=== PATIENT | male | born 1970 | race Caucasian/White ===

== ENCOUNTER 2023-02-13 07:32 | Outpatient (CLI) | payer OTHER, SELFPAY | END 2023-02-13 07:33 | disposition home or self-care (01) | PROVIDERS: PCP Nurse Practitioner Family; Visit Provider Otolaryngology | DX: H93.12 Tinnitus, left ear (principal); J33.8 Other polyp of sinus; J30.2 Other seasonal allergic rhinitis; H90.3 Sensorineural hearing loss, bilateral | CPT/HCPCS: 92557; 92567 ==

== ENCOUNTER 2023-03-18 06:33 | Outpatient (CLI) | payer OTHER, SELFPAY ==
--- NOTE | ~2023-03-18 | CT_ITS ---
EXAMINATION: CT sinus wo con DATE: 03/18/2023 06:51 INDICATION: Other polyp of sinus TECHNIQUE: Computed tomography (CT) of the paranasal sinuses was performed without intravenous contra st. The dose-length product (DLP) was 231.47 mGy-cm. Iterative reconstruction was used. COMPARISON: None FINDINGS: There is normal development and pneumatization of the paranasal sinuses. There is a polyp o r mucous retention cyst in the medial aspect of the right frontal sinus. There is mild mucosal thicke madelaine of the ethmoidal air cells. There are polyps or mucous retention cysts inferiorly in the right m axillary sinus. There is also a polyp or mucous retention cyst on the anterior wall of the right maxi llary sinus. There is mild mucosal thickening inferiorly in the left maxillary sinus. There are 6 mm of leftward deviation of the nasal septum. There is partial opacification of the right middle meatus. The bilateral ostiomeatal complexes are patent. Visualized soft tissues are unremarkable. IMPRESSION: 1. Sinus disease as above. Reviewed, dictated and finalized at location L. IMPRESSION: 1. Sinus disease as above.
== END 2023-03-18 06:34 | disposition home or self-care (01) ==
PROVIDERS: PCP Nurse Practitioner Family; Visit Provider Nurse Practitioner Family
DX: J01.01 Acute recurrent maxillary sinusitis (principal); J30.2 Other seasonal allergic rhinitis; J33.8 Other polyp of sinus
CPT/HCPCS: 70486

== ENCOUNTER 2023-06-20 09:02 | Outpatient (CLI) | payer OTHER, SELFPAY ==
--- NOTE | 2023-06-20 09:15 | ECG_ITS ---
Measurements Intervals [place] Rate: 66 P: 9 IN: 184 QRS: 19 QRSD: 113 T: 5 QT: 406 QTc: 426 Interpretive Statements SINUS RHYTHM MODERATE INTRAVENTRICULAR CONDUCTION DELAY [110+ ms QRS DURATION] ABNORMAL ECG NO PREVIOUS ECG AVAILABLE FOR COMPARISON Electronically Signed On 06-20-2023 14:00:02 CDT by Caleb Chen M.D.
[2023-06-20 09:44] LABS: Anion Gap 6 mmol/L (8-16); Blood Urea Nitrogen 18 mg/dL (9-20); Calcium 9.2 mg/dL (8.4-10.2); Carbon Dioxide 32 mmol/L (22-30); Chloride 100 mmol/L (98-107); Estimated Glomerular Filt Rate > 60; Glucose 101 mg/dL (65-110); Potassium 3.3 mmol/L (3.4-5.0); Sodium 138 mmol/L (137-145)
== END 2023-06-20 09:03 | disposition home or self-care (01) ==
PROVIDERS: Anesthesiology; PCP Nurse Practitioner Family; Visit Provider Otolaryngology
DX: E11.9 Type 2 diabetes mellitus without complications (principal); Z01.818 Encounter for other preprocedural examination
CPT/HCPCS: 36415; 80048; 93005

== ENCOUNTER 2023-07-01 01:06 | Day surgery (SDC) | payer OTHER, SELFPAY ==
[2023-06-19 10:17] VITALS: BMI 34.4
--- NOTE | 2023-06-19 10:24 | PC.NURSE ---
Report to the Outpatient Waiting Room, entrance under the green pavilion located off [facility], at time 9:30 on date 07/01/23. Planned Procedure Time: 11:30. Time changes happen often and if your time is changed the preop area will call you the afternoon before. - You and your visitor will be asked to self-screen and do not enter if you have any COVID symptoms. - A mask is optional within the hospital at this time. Patients may have clear liquids (water, carbonated beverages, clear teas, apple juice) until 3 hours prior to surgery (8:30) with a maximum of 20 ounces. - No food from midnight until time of surgery Take the following medications with a SIP of water the morning of surgery: AMLODIPINE DO NOT STOP ANY OF YOUR OTHER PRESCRIPTION MEDICATIONS PRIOR TO SURGERY ?EXCEPT THE FOLLOWING Medications to discontinue per physician: VITAMINS/SUPPLEMENTS Date to take last dose: 06/27/23 Please no make-up, nail maori, hairspray, perfume, deodorant, or body powder the day of surgery. No jewelry (including any body piercings) or valuables the day of surgery, leave them at home. Please take a shower or bath the night before, or the morning of, surgery with an antibacterial soap. Wear comfortable, loose fitting clothing. - Jewelry must be removed prior to entering the operating room. Rings and piercings that are not removed may be cut off. - The hospital will not accept responsibility for valuables. - Please leave all valuables, including medications, at home the day of surgery. If you are going home after surgery, a licensed hire car driver must drive you home. - NO public transportation without another adult if you receive anesthesia. - We recommend that an adult stay with you for 24 hours following discharge. - We also recommend that you do not drive, make important decision, drink alcoholic beverages, or take any drugs that were not prescribed by your health care provider for at least 24 hours after your discharge time. Follow any additional instructions given to you from your surgeon. If you or anyone in your household have experienced Covid symptoms in the past week, please notify your surgeon or the nurse liaison at the phone number below for possible testing. Telephone instructions given to PT - DIVYA FRAIRE and asked if any additional questions and then verbalized understanding. Patient advised to call surgeon office or pre surgery nurse liaison [phone] if any additional questions.
--- NOTE | 2023-06-30 13:49 | WPDANESEPPF ---
Anes - Initial Pre Proc Eval Procedure: Operation Date: 07/01/23 11:30 Proposed Procedures p Endoscopic Septoplasty, - Niraj Cummings MD s Image Guided Bilateral Inferior Turbinectomy With Outfracture, Right Maxillary Antrostomy Without Tissue Removal, Right Total Ethmoidectomy, Right Frontal Sinusotomy - Niraj Cummings MD Date/Time: 06/30/23 13:49 Surgeon: Niraj Cummings MD Pre Op Diagnosis: chronic sinusitis Patient Data Age: 52 Gender: M Height: 1.7 m Weight: 99.8 kg Allergies Allergy/AdvReac Type Severity Reaction Status Date / Time No Known Allergies Allergy Verified 07/01/23 09:06 Home Medications Medication Instructions Recorded Confirmed Type amlodipine 10 mg tablet 10 mg PO DAILY 01/28/23 06/19/23 History calcium carbonate 430 mg calcium 430 mg PO DAILY 01/28/23 06/19/23 History (1,000 mg) chewable tablet cetirizine 10 mg capsule (Zyrtec) 10 mg PO DAILY 01/28/23 06/19/23 History garlic 1,000 mg capsule (garlic 1,000 mg PO DAILY 01/28/23 06/19/23 History oil) losartan 100 1 tablet PO DAILY 01/28/23 06/19/23 History mg-hydrochlorothiazide 25 mg tablet magnesium hydroxide 400 mg (170 mg 400 mg PO DAILY 01/28/23 06/19/23 History magnesium) chewable tablet [id number] 120 mcg-lutein 1 tablet PO DAILY 01/28/23 06/19/23 History 150 mcg-herb 50 mg chewable tablet (Alive Men's 50 Plus Multivitamin) omega-3 fatty acids 1,000 mg 1,000 mg PO DAILY 01/28/23 06/19/23 History capsule omeprazole 40 mg capsule,delayed 40 mg PO DAILY 01/28/23 06/19/23 History release fluticasone propionate 50 1 - 2 spray intranasal BID #16 mL 04/24/23 06/19/23 Rx mcg/actuation nasal spray,suspension (Flonase Allergy Relief) mupirocin 2 % topical ointment 1 applic topical .COMPLEX #44 grams 05/08/23 06/19/23 Rx Lactobac 51-Bifidobac 1 cap PO DAILY 06/19/23 06/19/23 History 3-L.lactis-S.thermophilus 4 billion cell capsule (Daily Probiotic (10 Strains)) empagliflozin 10 mg tablet 10 mg PO DAILY 06/19/23 06/19/23 History (Jardiance) Patient hx anesthesia problems: none Family hx anesthesia problems: none Results Review: All pre-operative results and documents have been reviewed as part of the pre-operative evaluation. [facility] Past Medical History Medical History (Updated 06/30/23 @ 13:50 by Rafa Vaca DO) Diabetes type 2, controlled GERD (gastroesophageal reflux disease) Hypertension Family History Family History Father Diabetes mellitus Hypertension Heart disease Sibling Hypertension Grandparent Diabetes mellitus Hypertension Social History Social History Smoking status: Never smoker Alcohol intake: current Alcohol use details: 2/MONTH Substance use: never Substance use type: does not use Lack of Transportation: No Lack of Food: Never True Current Housing: I Have Housing Concerned About Future Housing: No Difficulty Paying Gas/Electric Bills: No Difficulty Paying for Meds: No Currently Unemployed: No Education: High School Diploma/GED Difficulty w/ Childcare or Family Care: No Living arrangements: with family Spiritual care concerns: No Anes - Eval Final PreProcedure Day of Procedure 06/30/23 13:49 Patient weight: obese Heart: regular rate and rhythm Lungs: clear to auscultation Airway: Mallampati scale class II Neurological: alert and oriented Last oral intake: >/= 8 hours ASA classification: III Emergent: no Anesthetic plan: proceed Anesthesia type and monitoring: general ETT and standard monitoring Results Review: All pre-operative results and documents have been reviewed as part of the pre-operative evaluation. Informed Consent: The patient's anesthetic plan and its attendant risks and benefits were discussed with the patient/family/POA. Questions were solicited and ans
--- NOTE | 2023-06-30 17:39 | PM.IMHP ---
H&P: HPI History of Present Illness Date/Time: 06/30/23 17:39 Chief Complaint: chronic sinusitis nasal polyps septal deviation turbinate hypertrophy Narrative: planned procedure Review of Systems Review of Systems: All systems reviewed & are unremarkable except as noted in HPI and below [facility] Past Medical History Medical History (Updated 06/30/23 @ 13:50 by Rafa Vaca DO) Diabetes type 2, controlled GERD (gastroesophageal reflux disease) Hypertension Family History Family History Father Diabetes mellitus Hypertension Heart disease Sibling Hypertension Grandparent Diabetes mellitus Hypertension Social History Social History Smoking status: Never smoker Alcohol intake: current Alcohol use details: 2/MONTH Substance use: never Substance use type: does not use Lack of Transportation: No Lack of Food: Never True Current Housing: I Have Housing Concerned About Future Housing: No Difficulty Paying Gas/Electric Bills: No Difficulty Paying for Meds: No Currently Unemployed: No Education: High School Diploma/GED Difficulty w/ Childcare or Family Care: No Living arrangements: with family Spiritual care concerns: No Meds Home Medications and Allergies Home Medications Medication Instructions Recorded Confirmed Type amlodipine 10 mg tablet 10 mg PO DAILY 01/28/23 06/19/23 History calcium carbonate 430 mg calcium 430 mg PO DAILY 01/28/23 06/19/23 History (1,000 mg) chewable tablet cetirizine 10 mg capsule (Zyrtec) 10 mg PO DAILY 01/28/23 06/19/23 History garlic 1,000 mg capsule (garlic 1,000 mg PO DAILY 01/28/23 06/19/23 History oil) losartan 100 1 tablet PO DAILY 01/28/23 06/19/23 History mg-hydrochlorothiazide 25 mg tablet magnesium hydroxide 400 mg (170 mg 400 mg PO DAILY 01/28/23 06/19/23 History magnesium) chewable tablet lkfyewqc-pka-chtso 120 mcg-lutein 1 tablet PO DAILY 01/28/23 06/19/23 History 150 mcg-herb 50 mg chewable tablet (Alive Men's 50 Plus Multivitamin) omega-3 fatty acids 1,000 mg 1,000 mg PO DAILY 01/28/23 06/19/23 History capsule omeprazole 40 mg capsule,delayed 40 mg PO DAILY 01/28/23 06/19/23 History release fluticasone propionate 50 1 - 2 spray intranasal BID #16 mL 04/24/23 06/19/23 Rx mcg/actuation nasal spray,suspension (Flonase Allergy Relief) mupirocin 2 % topical ointment 1 applic topical .COMPLEX #44 grams 05/08/23 06/19/23 Rx Lactobac 51-Bifidobac 1 cap PO DAILY 06/19/23 06/19/23 History 3-L.lactis-S.thermophilus 4 billion cell capsule (Daily Probiotic (10 Strains)) empagliflozin 10 mg tablet 10 mg PO DAILY 06/19/23 06/19/23 History (Jardiance) Allergies Allergy/AdvReac Type Severity Reaction Status Date / Time No Known Allergies Allergy Unverified 06/19/23 10:14 Exam Narrative: septal deviation turbinate hypertrophy nasal polyps chronic appearing sinuses Assessment and Plan Assessment and plan (1) Hypertrophy of both inferior nasal turbinates: Code(s): J34.3 - Hypertrophy of nasal turbinates Status: Acute Assessment and Plan: OR image guided endoscopic right-sided maxillary antrostomy total ethmoidectomy frontal sinusotomy. Septoplasty. Turbinate reduction bilaterally with outfracture. Risks were discussed including bleeding infection damage to any structure. Damage to any structure of the clavicle by myself. Postoperative bleeding pain infection. Need for time off work time off school. Damage to any structure during the induction remains of Anesthesia. Septal perforation. Re hypertrophy of the turbinates. Need for time off work time off school. CSF leak brain brain damage. Change in vision. Total blindness. (2) Nasal septal deviation: Code(s): J34.2 - Deviated nasal septum Sta
[2023-07-01] VITALS (12 sets, daily range): BP systolic 89–132; BP diastolic 51–87; PULSE 67–87; RESP 12–16; TEMP 36.6–36.9; O2SAT 92–99
--- NOTE | 2023-07-01 07:15 | WPDHPUPDATE1 ---
History and Physical Update Update Date/Time: 07/01/23 07:15 History and Physical has been reviewed, including an updated exam of the patient. There are NO changes in the patient's condition. Risks, benefits, and alternatives have been discussed and questions answered. Patient agrees to proceed with procedure.
[2023-07-01] MEDS: ACETAMINOPHEN 500 MG TABLET 1000 MG PO (09:11)
[2023-07-01 10:02] LABS: Glucose Point of Care 86 mg/dl (65-105)
[2023-07-01] MEDS: MIDAZOLAM HCL (*CRX) 2 MG/2 ML VIAL IV PUSH (10:16)
[2023-07-01] MEDS: LACTATED RINGERS 1,000 ML 30 ML IV CONT ×2 (10:16→16:36)
--- NOTE | 2023-07-01 10:17 | SUR.PREOP ---
Patient needle phobic. IV started on 2nd attempt as patient pulled away first attempt. Panic attack, sweating, nausea, light headed. at bedside fanning patient. HOB lowered to accomodate BP. Discussed with Dr Mock and gave Versed. Placed on O2 2l nc and will continue to monitor bp and o2 sat.
--- NOTE | 2023-07-01 12:44 | SUR.PREOP ---
Discussed delay with patient and . Patient's only complaint is being hungry.
[2023-07-01] MEDS: ceFAZolin 2 GM/D5W 50 ML 2 GM/50 ML BAG IVPB (13:52)
[2023-07-01] MEDS: OXYMETAZOLINE HCL 0.05% NAS 15 ML BTL (*BKC) 1 SPRAY NASAL (14:31)
[2023-07-01] MEDS: LIDO 1%/EPINEPHRINE 1:100,000 50 ML VIAL INFILTRATE (14:31)
--- NOTE | 2023-07-01 16:53 | P.OP_ITS ---
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 Turbinates well reduced septum had prev ious septoplasty which I was not informed of there were perforations of the septo nasal septal flap on the left side none on the right side. Good reduction good straightening of the septum good reduction of the turbinates. Mild polypoid tissue in the maxillary sinus ethmoid and frontal the frontal was the most abnormal appearing this was also sent for pathologic analysis. Although nothing compared abnormality to the middle turbinate structure. Description of Procedure Patient identified consent verified the preoperative holding area. Patient brought to the operating. Time-out performed. Image guidance initiated confirmed. General anesthesia induced endotracheal tube secured. Patient prepped draped position procedure confirmed 2nd time-out performed. Afrin- soaked pledgets placed for 5 minutes then removed. 0 degree endoscope utilized total 13 cc 1% lidocaine 1 100,000 parts epinephrine checked the bilateral nasal septum inferior turbinates and right middle turbinate. Varun incision made left side left nasal septal flap elevated perforations along the inferior aspect was also previous septoplasty as he had absent septum. Deviated septum removed with osteotome and Tom Bello forceps [place] forceps. [place] incision closed with interrupted 5 0 fast gut sutures. Turbinates reduced submucosal plane with 2.5 [place] microdebrider. Then outfractured with [place] elevator. Right middle turbinate taken a straight through cut and Bovie suction electrocautery on the stump at 15. Maxillary antrostomy performed with straight through cut backbiter double ball tip probe and microdebrider. All under image guidance total ethmoidectomy with [place] microdebrider frontal sinusotomy with image guidance and frontal sinus instruments. The middle turbinate was sent for pathologic analysis given its abnormal appearance. The frontal sinus bone and polyp material were also sent for pathologic analysis. Wound is copiously irrigated no pack placed on the right side Mejia splints placed a 0 no pack was also placed lateral to the left middle turbinate to ensure it healed in a medial position. Mejia splints were placed sutured anteriorly using a 3-0 mattress nylon suture. Total blood loss about 30-50 cc. After I performed all dictated portions of procedure. No complication. Patient taken to PACU. Care the patient given back to Anesthesiology. Estimated Blood Loss 30 Urine Output 100 Drains No Packing Yes (Nova pack bilateral middle meatus) Pathology Yes Complications No immediate complications Condition Stable Disposition PACU [facility] Billing Surgery - Charge Forward: Surgery Billing
[2023-07-01] MEDS: ONDANSETRON INJ 4 MG/2 ML VIAL IV PUSH (17:05)
[2023-07-01] MEDS: diphenhydrAMINE HCl INJ 50 MG/ML VIAL 12.5 MG IV PUSH (18:31)
== END 2023-07-01 19:21 | disposition home or self-care (01) ==
PROVIDERS: Visit Provider Otolaryngology
PROC: (CPT 30520; principal; 2023-07-01 11:30)
PROC: (CPT 31256; 2023-07-01 11:30)
DX: J32.9 Chronic sinusitis, unspecified (principal); J34.3 Hypertrophy of nasal turbinates; J34.2 Deviated nasal septum; J33.8 Other polyp of sinus; J34.89 Other specified disorders of nose and nasal sinuses; J34.1 Cyst and mucocele of nose and nasal sinus; I10 Essential (primary) hypertension; E11.9 Type 2 diabetes mellitus without complications; K21.9 Gastro-esophageal reflux disease without esophagitis; Z79.84 Long term (current) use of oral hypoglycemic drugs; E66.9 Obesity, unspecified; Z68.34 Body mass index [BMI] 34.0-34.9, adult
CPT/HCPCS: 31256; 31253; 61782; 30520; 30140; 82948; 88305; 88311; A9270; J0690; J1100; J1170; J1200; J2250; J2405; J2704; J3010; J7030; J7120

== ENCOUNTER 2023-07-22 07:56 | Outpatient (CLI) | payer OTHER, SELFPAY ==
--- NOTE | ~2023-07-22 | XR_ITS ---
Left Knee Technique: AP, lateral, and sunrise views were obtained. Clinical History: Pain Findings: No fracture or dislocation is seen. Osseous alignment is anatomic. Joint spaces are preserv ed without degenerative or erosive change. Soft tissues are unremarkable. No joint effusion is seen. Impression: Unremarkable left knee radiographs. Reviewed, dictated and finalized at location . END RECEPTIONIST Impression: Unremarkable left knee radiographs.
--- NOTE | ~2023-07-22 | XR_ITS ---
XR_[id number] DATE: 07/22/2023 08:42 INDICATION: Migraine headache. TECHNIQUE: AP, open-mouth, lateral views COMPARISON: None FINDINGS: There is straightening of the cervical spine which may be due to muscle spasm. C1 and C2 are normally aligned and the odontoid process is intact. No fracture or dislocation, locked facet or prevertebral soft tissue swelling is evident. There is anterior spurring but preservation of disc space at C5-C6. Remaining cervical interspaces ar e well preserved. IMPRESSION: Straightening of cervical spine, which may be due to muscle spasm Mild cervical spondylosis Reviewed, dictated and finalized at Location A. Reviewed, dictated and finalized at location L. D BELT SANDER
[2023-07-22 18:27] LABS: Alanine Aminotransferase 22 U/L (6-50); Albumin Level 4.2 g/dL (3.5-5.1); Alkaline Phosphatase 75 U/L (38-126); Anion Gap 6 mmol/L (8-16); Aspartate Amino Transferase 57 U/L (17-59); Basophils Percent Auto 0.6 % (0.2-1.2); Bilirubin,Total 0.6 mg/dL (0.2-1.3); Blood Urea Nitrogen 21 mg/dL (9-20); Carbon Dioxide 32 mmol/L (22-30); Chloride 102 mmol/L (98-107); Cholesterol 202 mg/dL (0-200); Eosinophils Absolute Auto 0.2 K/mm3 (0-0.3); Eosinophils Percent Auto 3.1 % (0-4.4); Estimated Glomerular Filt Rate > 60; Glucose 82 mg/dL (65-110); HDL Direct 49 mg/dL; Hematocrit 46.9 % (42.0-52.0); Immature Granulocyte Absolute 0.02 K/mm3 (0.00-0.031); Immature Granulocyte Percent A 0.3 % (0-0.5); Lymphocytes Absolute Auto 2.51 K/mm3 (0.9-3.2); Lymphocytes Percent Auto 35.8 % (18.3-44.2); Mean Corpuscular Hemoglobin 29.2 pg (26-34); Mean Corpuscular Volume 91.2 fl (80-100); Mean Platelet Volume 10.1 fl (7.4-10.4); Monocytes Absolute Auto 0.5 K/mm3 (0.1-0.6); Monocytes Percent Auto 7.7 % (2.6-8.5); Neutrophils Absolute Auto 3.7 K/mm3 (1.3-6.7); Neutrophils Percent Auto 52.5 % (45.5-73.1); Platelet Count Result 292 k/mm3 (150-375); Potassium 4.3 mmol/L (3.4-5.0); Red Blood Count 5.14 M/mm3 (4.6-6.20); Red Cell Distribution Width 13.3 % (11.5-14.5); Sodium 140 mmol/L (137-145); Triglycerides 92 mg/dL (<150)
[2023-07-22 18:38] LABS: LDL Cholesterol Direct 113 mg/dL
[2023-07-22 19:06] LABS: Hemoglobin A1C 5.4 % (<5.7)
[2023-07-26 11:48] LABS: Testosterone Total 279 ng/dL (250-1100)
[2023-07-29 06:18] LABS: Anti Nuclear Antibody Pattern Nuclear, Speckled; Anti Nuclear Antibody Titer 1:40 (Negative)
== END 2023-07-22 07:57 | disposition home or self-care (01) ==
LOC: ANHGOSHLAB 08:25 → ANHASCIMG 08:29
PROVIDERS: Visit Provider Nurse Practitioner Family
DX: M43.02 Spondylolysis, cervical region (principal); E11.9 Type 2 diabetes mellitus without complications; I10 Essential (primary) hypertension; K58.9 Irritable bowel syndrome, unspecified; G43.909 Migraine, unspecified, not intractable, without status migrainosus
CPT/HCPCS: 36415; 72040; 73562; 80053; 80061; 83036; 84402; 84403; 84443; 85025; 86038; 86039